=== PATIENT | male | born 1955 | race Caucasian/White ===

== ENCOUNTER 2018-04-06 14:44 | Outpatient (CLI) | payer OTHER ==
--- NOTE | 2018-04-06 16:22 | RAD ---
THREE VIEWS LUMBAR SPINE: 04/06/18 CLINICAL HISTORY: Pain. FINDINGS: There is no compression fracture or significant subluxation. There is a slight right convex curvature of the lumbar spine. Mild degenerative changes are present. There are small calcific densities overl cheli the left abdomen not further localized. IMPRESSION: 1. No acute osseous abnormality. 2. Calcific densities overlying the left abdomen, not further localized on the basis of this amelia mcdowell POS: APRIL
--- NOTE | 2018-04-06 16:28 | RAD ---
CERVICAL SPINE RADIOGRAPH SERIES FOUR VIEWS: 04/06/18 INDICATION: Pain. FINDINGS: Moderate multilevel degenerative changes throughout the cervical spine is present. There is accentuat ion of lordosis at the upper cervical spine. prevertebral soft tissues are normal in caliber. There i s a slight lateral location of the lateral mass of C1 relative to C2. The imaged dens is intact. IMPRESSION: Moderate multilevel degenerative changes of the cervical spine. POS: APRIL
== END 2018-04-06 14:45 | disposition home or self-care (01) ==
LOC: RAD-FRANK 14:44
PROVIDERS: ATTEND Nurse Practitioner Family
DX: S16.1XXS Strain of muscle, fascia and tendon at neck level, sequela (principal); M54.5 Low back pain; M54.2 Cervicalgia; M47.892 Other spondylosis, cervical region; R93.5 Abnormal findings on diagnostic imaging of other abdominal regions, including retroperitoneum
CPT/HCPCS: 72040; 72100